=== PATIENT | male | born 1965 | race Caucasian/White ===

== ENCOUNTER → 2018-08-03 | Outpatient (CLI) | payer BC, OTHER ==
[~2018-08-03] MED LIST: ALLOPURINOL 10100 M1; ASPIRIN325 PO; ATRIPLA TABLET1 EACH; BYSTOLIC 5 MG5 M1 PO; CIALIS5 MG; DIOVAN 80 MG TA80 M1 PO; FISH OIL 1,001000 M2; FLAXSEED1000 MG; IBUPROFEN 200200 M1; LIVALO2 MG; MILK THISTLE500 MG; NIACIN1000 MG; SUDAFED 12 HOU120 MG; TUMS PO
== END ==
LOC: RAD 12:44
DX: J98.11 Atelectasis (principal); J44.9 Chronic obstructive pulmonary disease, unspecified

== ENCOUNTER 2020-03-14 15:44 | Inpatient (IN) | payer BC, OTHER ==
[~2020-03-14] VITALS: Ht 177.8 cm; Wt 74.8 kg
[2020-03-14] MEDS ORDERED: BIKTARVY 50-201 EACH PO (16:01)
[2020-03-14] MEDS ORDERED: UBIQUINOL100 MG PO (16:04)
[2020-03-14] MEDS ORDERED: TRELEGY ELLIPT1 EACH INH (16:04)
[2020-03-14] MEDS ORDERED: PROAIR HFA8.5 GM INH (16:05)
[2020-03-14 16:21] LABS: BASOPHILS 0.4 % (0.0-2.0); EOSINOPHILS 2.5 % (0.0-3.0); HEMATOCRIT 40.1 % (42.0-52.0); HEMOGLOBIN 14.2 gm/dL (14.0-18.0); LYMPHOCYTES 23.5 % (24.0-44.0); MCH 32.9 pg (26.0-34.0); MCHC 35.4 g/dL (28.0-37.0); MONOCYTES 11.4 % (1.0-8.0); PLATELET COUNT 232 thou/uL (150-400); POLYS 62.2 % (36.0-66.0); RBC 4.31 mil/uL (4.50-6.00); RDW 12.6 % (10.5-14.5); WBC 9.7 thou/uL (4.0-11.0)
[2020-03-14 16:27] LABS: ANION GAP 7 mmol/L (7-16); BUN 18 mg/dL (7-18); CHLORIDE 106 mmol/L (98-107); CO2 26 mmol/L (21-32); CREATININE 1.4 mg/dL (0.7-1.3); GLUCOSE 84 mg/dL (74-106); POTASSIUM 3.6 mmol/L (3.5-5.1); SODIUM 139 mmol/L (136-145)
[2020-03-14 16:36] LABS: TROPONIN-I 0.81 ng/mL (<0.06)
--- NOTE | 2020-03-14 16:38 | EKG ---
[facility] [place] [address] ELECTROCARDIOGRAM REPORT Name: MARCY DALEY Room #: PRE [facility]..#: [id number] Admission: Attend Phys: Discharge: Date of : 63 Report #: [id number] THIS REPORT FOR: cc: Isaiah Engel MD, Christopher B. MD Lundgren,Wesley Fragoso MD 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 03/14/20 1637 1553 1553 Wesley Zarco MD, [facility] /EPI
[2020-03-14 18:12] VITALS: BP 148/86; BP 155/102
[2020-03-14 18:30] VITALS: BP 139/94
[2020-03-14 18:36] LABS: CHOLESTEROL 120 mg/dL (<200); HDL CHOLESTEROL 50 mg/dL (>40); LDL CHOLESTEROL 50 mg/dL (<100); TC:HDL 2.4 Ratio (Not establshd); TRIGLYCERIDE 102 mg/dL (<150); VLDL 20 mg/dL (<40)
[2020-03-14 18:40] LABS: PROTIME 10.6 Seconds (9.3-11.4)
[2020-03-14 19:50] VITALS: BP 141/97
--- NOTE | 2020-03-14 20:55 | NUR ---
PT. ARRIVED AT FLOOR AROUND 1809; PT. AOX4; ABLE TO AMBULATE FROM WHEECHAIR TO BED; NO C/O PAIN; HEPARIN GIVEN PER EMAR; UPSET DUE TO TV NOT WORKING; REQUESTED TO CHANGE ROOMS; CHANGED TO ROOM 200; SR ON THE MONITOR; EDUCATED ABOUT FALL PREVENTIONS; ST. UNDERSTANDING; PASSED REPORT TO NIGHT NURSE SOREN OHARA;
[2020-03-15] VITALS (9 sets, daily range): BP systolic 121–173; BP diastolic 79–112
--- NOTE | 2020-03-15 03:17 | NUR ---
PT ADMITTED TO 219 IRRITABLE ABOUT HAVING NO TV REMOTE, PT TRANSFERRED TO ROOM 200, HEPARIN GTT STARTED, PAIN MED GIVEN FOR INTERMITTENT CP, SR -SB ON HEART MONITOR. VSS, NPO SINCE MNOC, CRITICAL TROPONIN CALLED TO PHYSICIAN, PT RESTING QUIETLY IN ROOM WILL CON'T TO MONITOR PER PROTOCOL.
[2020-03-15 04:12] LABS: HEMATOCRIT 40.8 % (42.0-52.0); MCH 32.4 pg (26.0-34.0); MCHC 34.2 g/dL (28.0-37.0); MCV 94.7 fL (80.0-100.0); RBC 4.31 mil/uL (4.50-6.00); RDW 12.6 % (10.5-14.5); WBC 7.8 thou/uL (4.0-11.0)
[2020-03-15 04:21] LABS: ALBUMIN 3.3 g/dL (3.4-5.0); CALCIUM 8.8 mg/dL (8.5-10.1); CREATININE 1.3 mg/dL (0.7-1.3); POTASSIUM 3.7 mmol/L (3.5-5.1); TOTAL BILIRUBIN 0.6 mg/dL (0.2-1.0); TOTAL PROTEIN 6.2 g/dL (6.4-8.2)
--- NOTE | 2020-03-15 07:04 | NUR ---
PT RESTING IN ROOM THRU THE NOC, NPO, VSS, PRN PAIN MED GIVEN FOR INTERMITENT CP, ASSESSMENTS CHARTED, WILL CON'T TO MONITOR PER PPOC.
--- NOTE | 2020-03-15 07:32 | EKG ---
[facility] Ankita [place] [address] ELECTROCARDIOGRAM REPORT Name: MARCY DALEY Room #: 200-I ADM IN M.R.#: [id number] Admission: 03/14/20 Attend Phys: Jerry Terrell MD Discharge: Date of : 63 Report #: [id number] THIS REPORT FOR: cc: Jason Engel MD, Daniel J. MD Lundgren, Craig H. 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 : 1965 Requested By: Durga Freeman Order Number: [id number] MD: Wesley Zarco Measurements Intervals [place] Rate: 66 P: 16 ND: 147 QRS: 13 QRSD: 91 T: 4 QT: 397 QTc: 416 Interpretive Statements Sinus rhythm Nonspecific ST segment abnormality Compared to ECG 03/14/2020 15:53:06 No significant change was found Electronically Signed On 03-15-2020 7:31:18 CDT by Wesley Zarco [email or web address] <ELECTRONICALLY SIGNED> By: Wesley Zarco MD, FACC 03/15/20 0731 1650 1650 Wesley Zarco MD, [facility] /EPI
--- NOTE | 2020-03-15 12:38 | 2DMMODE ---
[facility] [place] [address] 2 D/M-MODE ECHOCARDIOGRAM Name: MARCY DALEY Room #: 200-I ADM IN M.R.#: [id number] Admission: 03/14/20 Attend Phys: Jerry Terrell MD Discharge: Date of : 63 Report #: [id number] THIS REPORT FOR: cc: Jason Engel MD, Daniel J. MD Lundgren, Craig H. MD [facility] ~ APPROVED REPORT Study performed: 03/15/2020 11:37:49 EXAM: Comprehensive 2D, Doppler, and color-flow Echocardiogram Patient Location: Bedside Room #: 200 Status: routine BSA: 1.92 HR: 56 bpm BP: 172/112 mmHg Rhythm: NSR Other Information Study Quality: Fair Technically limited study due to lung interference/flat on back. Indications NSTEMI status post PCI. Hx: PR with stent placement. 2D Dimensions RVDd: 27.92 mm IVSd: 13.81 (7-11mm) LVOT Diam: 21.13 (18-24mm) LVDd: 52.13 mm PWd: 13.09 (7-11mm) LVDs: 38.91 (25-40mm) Aortic Root: 33.74 mm Volumes Left Atrial Volume (Systole) Single Plane 4CH: 49.39 mL Single Plane 2CH: 45.18 mL LA ESV Index: 26.00 mL/m2 Aortic Valve AoV Peak Johnson.: 1.20 m/s AO Peak Gr.: 5.74 mmHg LVOT Max P.60 mmHg [facility] [address] [place] [address] 2 D/M-MODE ECHOCARDIOGRAM Name: EDIMARCY Samantha Room #: 200-I ADM IN ..#: [id number] Admission: 03/14/20 Attend Phys: Jerry Terrell MD Discharge: Date of : 63 Report #: [id number] LVOT Max V: 0.81 m/s SHEY Vmax: 2.36 cm2 Mitral Valve E/A Ratio: 0.8 MV Decel. Time: 216.84 ms MV E Max Johnson.: 0.75 m/s MV A Johnson.: 0.92 m/s MV PHT: 62.88 ms IVRT: 121.11 ms Pulmonary Valve PV Peak Johnson.: 0.84 m/s PV Peak Gr.: 2.79 mmHg Tricuspid Valve RAP Estimate: 5.00 mmHg Left Ventricle The left ventricle is normal size. There is normal LV segmental wall motion. Mild concentric left ventricular hypertrophy. Left ventricular systolic function is normal. LVEF is 50-55%. Mild diastolic dysfunction is present (impaired relaxation pattern). Right Ventricle The right ventricle is normal size. The right ventricular systolic function is normal. Atria The left atrium size is normal. The right atrium size is normal. Aortic Valve The aortic valve is normal in structure. Trace aortic regurgitation. There is no aortic valvular stenosis. Mitral Valve The mitral valve is normal in structure. Trace to mild mitral regurgitation. No evidence of mitral valve stenosis. Tricuspid Valve The tricuspid valve is normal in structure. There is no tricuspid valve regurgitation noted. Unable to assess PA pressure. Pulmonic Valve Pulmonic valve is not well visualized. [facility] [address] [address] 2 D/M-MODE ECHOCARDIOGRAM Name: MARCY DALEY Room #: 200-I ADM IN [facility].#: [id number] Admission: 03/14/20 Attend Phys: Jerry Terrell MD Discharge: Date of : 63 Report #: [id number] Great Vessels The aortic root is normal in size. Ascending aorta is not well visualized. IVC is normal in size and collapses >50% with inspiration. Pericardium There is no pericardial effusion. <Conclusion> Left ventricular systolic function is normal. There is normal LV segmental wall motion. LVEF is 50-55%. Mild diastolic dysfunction The aortic valve is normal in structure. Trace aortic regurgitation, no stenosis. The mitral valve is normal in structure. Trace to mild mitral regurgitation. Unable to assess pulmonary artery pressure. There is no pericardial effusion. <ELECTRONICALLY SIGNED> By: Wesley Zarco MD, [facility] 03/15/20 1237 1237 1237 Wesley Zarco MD, FACC /INF
--- NOTE | 2020-03-15 15:53 | EKG ---
[facility] [place] [address] ELECTROCARDIOGRAM REPORT Name: MARCY DALEY Room #: 200-I ADM IN M.R.#: [id number] Admission: 03/14/20 Attend Phys: Jerry Terrell MD Discharge: Date of : 63 Report #: [id number] THIS REPORT FOR: cc: Jason Engel MD, Daniel J. MD Couchonnal, Luis F. 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
--- NOTE | 2020-03-15 19:53 | NUR ---
ASSUMED CARE PT SHIFT CHANGE. ASSESSMENTS CHARTED. MORNING ASSESSMENT NOT CHARTED DUE TO PT BEING TAKEN TO CAR WASH ATTENDANT SHORTLY AFTER SHIFT CHANGE. PT ALERT AND ORIENTED. VSS- BP ELEVEATED, CARDS NOTIFIED. ORDERS RECEIVED. PT C/O INTERMITTEN CP THIS SHIFT. CARDS NOTIFIED, ORDERS RECEIVED. PT C/O HEART BURN AND WAS GIVEN PEPCID AND GI COCKTAIL WITH RELIEF OBTAINED. PT UP AD DINORA, RT GROIN SITE CDI, NO HEMATOMA. PT CURRENTLY RESTING IN BED DENYING OF NEEDS/ PAIN. WILL CONTINUE TO MONITOR. REPORT PASSED ONTO NOC RN.
[2020-03-16 05:38] LABS: HEMATOCRIT 43.6 % (42.0-52.0); HEMOGLOBIN 15.1 gm/dL (14.0-18.0); MCH 32.3 pg (26.0-34.0); MCHC 34.6 g/dL (28.0-37.0); MCV 93.3 fL (80.0-100.0); RBC 4.68 mil/uL (4.50-6.00); RDW 12.6 % (10.5-14.5); WBC 9.5 thou/uL (4.0-11.0)
[2020-03-16 06:03] LABS: ALBUMIN 3.5 g/dL (3.4-5.0); CALCIUM 9.4 mg/dL (8.5-10.1); CREATININE 1.1 mg/dL (0.7-1.3); POTASSIUM 3.7 mmol/L (3.5-5.1); TOTAL BILIRUBIN 0.9 mg/dL (0.2-1.0); TOTAL PROTEIN 6.9 g/dL (6.4-8.2)
[2020-03-16 07:15] VITALS: BP 164/109
--- NOTE | 2020-03-16 07:42 | EKG ---
[facility] [place] [address] ELECTROCARDIOGRAM REPORT Name: MARCY DALEY Room #: 200-I ADM IN M.R.#: [id number] Admission: 03/14/20 Attend Phys: Jerry Terrell MD Discharge: Date of : 63 Report #: [id number] THIS REPORT FOR: cc: Jason Engel MD, Daniel J. MD Lundgren, Craig H. 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: Shaheed CANTU : 1965 Requested By: Gigi Lancaster Order Number: [id number] MD: Wesley Zarco Measurements Intervals [place] Rate: 75 P: 31 MI: 148 QRS: 55 QRSD: 90 T: 61 QT: 401 QTc: 448 Interpretive Statements Sinus rhythm Nonspecific ST segment abnormality Compared to ECG 03/15/2020 14:59:48 No significant changes Electronically Signed On 03-16-2020 7:40:08 CDT by Wesley Zarco [email or web address] <ELECTRONICALLY SIGNED> By: Wesley Zarco MD, FACC 03/16/20 0740 0711 0711 Wesley Zarco MD, [facility] /EPI
[2020-03-16] MEDS ORDERED: NORVASC5 MG PO (07:56)
[2020-03-16] MEDS ORDERED: ZETIA10 MG PO (07:56)
[2020-03-16] MEDS ORDERED: EFFIENT10 MG PO (07:56)
[2020-03-16 07:58] LABS: TROPONIN-I 1.24 ng/mL (<0.06)
--- NOTE | 2020-03-16 10:46 | NUR ---
noted per chart, possible dc today. will cont following as needed. no anticipated needs.
[2020-03-16 12:10] VITALS: BP 164/109
--- NOTE | 2020-03-16 20:47 | NUR ---
ASSUMED CARE OF PATIENT AT 0700. ASSESSMENT DOCUMENTED. PATIENT DENIES ANY CHEST PAIN. RIGHT GROIN SITE FROM CATH IS FREE OF EDEMA, HEMATOMA OR DRAINAGE. PATIENT IS UP AD DINORA WITHOUT ANY DIFFICULTY. DISCHARGE ORDERS PLACED. PATIENT STATES THAT HE HAS ALL OF HIS BELONGINGS. IV AND TELE REMOVED. DISCHARGE PAPERWORK REVIEWED AND SIGNED. PATIENT STATES THAT HE FEELS BETTER THAN HE DID WHEN HE ARRIVED. PATIENT TAKEN VIA WHEELCHAIR TO THE MAIN ENTRANCE AND DRIVEN HOME BY HIS BROTHER.
--- NOTE | 2020-03-22 14:10 | CATHLAB ---
[facility] [place] [address] INVASIVE PROCEDURE REPORT Name: EDIMARCY Samantha Room #: 200-I DIS IN M.R.#: [id number] Admission: 03/14/20 Attend Phys: Jerry Terrell MD Discharge: 03/16/20 Date of : 63 Report #: [id number] THIS REPORT FOR: cc: Jasno Engel MD, Daniel J. MD Mancuso, Gerald M. MD [facility] ~ APPROVED REPORT Study performed: 03/15/2020 08:03:54 Patient Details Patient Status: In-Patient Room #: 200 The patient is a 55 year-old male Event Personnel Gigi Lancaster Carpet Layer Helper, Yohana Anderson RN, Isis Szymanski RTR Scrub, Sarah Bray Monitor, Samara Han RTR, BODY CARE MANAGER Online Services Manager Procedures Performed Art Access - R femoral artery* Left Heart Cath w/or w/o Coronaries [id number] [facility] [address] Initial Mod Sed Same Phys/QHP Gr5y 118020 38359 Mod Sed Same Phys/QHP Ea 207624 CELI Place w/wo Plasty Single CIRC 086505 CELI Place w/wo Plasty Single OM 584049 Hemostasis w/ Mynx Abdominal Aortography 296749 Indication Chest pain Procedure Narrative The Right Groin^ was infiltrated with 1% Lidocaine subcutaneous anesthesia. A sheath was inserted into the RFA 6F^. Coronary angiography was performed using coronary diagnostic catheters. The patient tolerated the procedure well and there were no complications associated with the procedure. Intraoperative Conscious Sedation Sedation start time: 832 Case end Time: 1000 Fentanyl 100 mcg Versed 1 mg Fluoro Time: 17.15 minutes Dose: DAP 228038.80 cGycm2 2229 mGy Contrast Type and Amount: Visipaque 260 ml [facility] [place] [address] INVASIVE PROCEDURE REPORT Name: MARCY DALEY Room #: 200-I [facility]#: [id number] Admission: 03/14/20 Attend Phys: Jerry Terrell MD Discharge: 03/16/20 Date of : 63 Report #: [id number] Hemodynamics The aortic pressure is 168/84 mmHg with a mean of 114 mmHg. The left ventricular pressure is 160/7 mmHg with a mean of mmHg. The left ventricular end diastolic pressure is 12 mmHg. PCI Technique Lesion Percutaneous coronary intervention was performed on the distal circumflex artery segment. A LAUNCHER 6FR EBU 4 #[id number] Guide Catheter was used to engage the MARGINAL ostium. A Luge Wire .014 x 182CM #[id number] Interventional Guidewire was used to cross the lesion. BALLOON DILATION A Balloon catheter Sprinter OTW 2.5 x 12 #[id number] was inserted and inflated up to 10.00atm for 21seconds. Additional Inflation: 10.00atm for 18seconds. Additional Inflation: 12.00atm for 11seconds. Additonal inflations as follows: 16 valeria F 23 sec., 4 valeria for 9 sec (x2), 18 valeria for 43 secs, 12 valeria for 10 secs, 20 valeria for 55 secx. STENT DEPLOYMENT A stent RESOLUTE DIEUDONNE RX 2.75 X 18 #[id number] was inserted and inflated up to 18.00atm for 28seconds. Additional Inflation: 20.00atm for 22seconds. POST STENT DEPLOYMENT BALLOON DILATION A Balloon catheter TREK NC OTW 2.75 X 8 #[id number] was inserted and inflated up to 20.00atm for 27seconds. Additional Inflation: 22atm for 23seconds. Additional Inflation: 22atm for 23seconds. The Trek was used at the bifurcation of Circ-OM PCI Technique Lesion 2 A LAUNCHER 6FR EBU 4 #[id number] Guide Catheter was used to engage the CIRC ostium. A Luge Wire .014 x 182CM #[id number] Interventional Guidewire was used to cross the lesion. Balloon Dilation A Balloon catheter Sprinter OTW 2.5 x 12 #[id number] was inserted and inflated up to 18atm for 38seconds. Post Stent Deployment Balloon Dilation A Balloon catheter TREK NC OTW 2.75 X 12 #[id number] was inserted and inflated up to 20atm for 40seconds. Additional Inflation: 20atm for 30seconds. [facility] [address] [place] [address] INVASIVE PROCEDURE REPORT Name: MARCY DALEY Room #: 200-I DIS IN ..#: [id number] Admission: 03/14/20 Attend Phys: Jerry Terrell MD Discharge: 03/16/20 Date of : 63 Report #: [id number] Conclusion 1. Successful PTCA stent of an ostial circumflex OM which extends into a prior stent totally occluded vessel with collateral filling. 2.75 x 8 resolute [place] postdilated 3.0 mm extend slightly into the main circumflex artery without encroachment and flow. FRANK grade III flow #2 sessile PTCA of in-stent restenosis in the mid distal circumflex which is large and codominant 90% to 10% with PTCA alone high-pressure balloon to 3.0 mm. #3 left main short free of disease giving rise to LAD circumflex #4 LAD is moderately diseasedm it extends to the apex and around no high-grade occlusive disease #5 essentially nondominant right coronary artery moderately diseased #6 normal left jugular size systolic function lower limits normal EF 50 to 55% subtle lateral wall hypokinesis #7 abdominal aortogram revealing mildly ectatic aorta mild calcification no aneurysm. Left renal artery appears to have a mild to moderate stenosis. Recommendations and plan: Continue aggressive risk factor modification. Dual antiplatelet therapy reinitiated. To CCU in stable but guarded condition. Follow post stent protocol. <ELECTRONICALLY SIGNED> By: Gigi Lancaster MD, [facility] 03/17/20901 1 1 Gigi Lancaster MD, FACC /INF
== END 2020-03-16 12:56 | disposition home or self-care (01) | DRG 246 ==
LOC: ER 15:44 → 2N 17:28 → EROBS 17:28 → 2N 18:22
PROVIDERS: Emergency Medicine; Internal Medicine Cardiovascular Disease; ADMIT Hospitalist; ATTEND Hospitalist
PROC: B211YZZ Fluoroscopy of Multiple Coronary Arteries using Other Contrast (ICD-10-PCS; principal; 2020-03-15)
PROC: 4A023N8 Measurement of Cardiac Sampling and Pressure, Bilateral, Percutaneous Approach (ICD-10-PCS; principal; 2020-03-15)
PROC: B410YZZ Fluoroscopy of Abdominal Aorta using Other Contrast (ICD-10-PCS; principal; 2020-03-15)
PROC: 027034Z Dilation of Coronary Artery, One Artery with Drug-eluting Intraluminal Device, Percutaneous Approach (ICD-10-PCS; principal; 2020-03-15)
DX: T82.855A Stenosis of coronary artery stent, initial encounter (principal); I21.4 Non-ST elevation (NSTEMI) myocardial infarction; N17.9 Acute kidney failure, unspecified; K21.9 Gastro-esophageal reflux disease without esophagitis; I25.10 Atherosclerotic heart disease of native coronary artery without angina pectoris; I10 Essential (primary) hypertension; E78.5 Hyperlipidemia, unspecified; G47.33 Obstructive sleep apnea (adult) (pediatric); J44.9 Chronic obstructive pulmonary disease, unspecified; F12.90 Cannabis use, unspecified, uncomplicated; Z95.5 Presence of coronary angioplasty implant and graft; Z91.040 Latex allergy status; Z87.891 Personal history of nicotine dependence; Z79.82 Long term (current) use of aspirin; Z79.899 Other long term (current) drug therapy; Z82.49 Family history of ischemic heart disease and other diseases of the circulatory system; Z71.51 Drug abuse counseling and surveillance of drug abuser
CPT/HCPCS: 10081

== ENCOUNTER → 2020-05-24 | Outpatient (CLI) | payer BC, OTHER ==
[~2020-05-24] MED LIST changes: +BIKTARVY 50-201 EACH PO; +EFFIENT10 MG PO; +NORVASC5 MG PO; +PROAIR HFA8.5 GM INH; +TRELEGY ELLIPT1 EACH INH; +UBIQUINOL100 MG PO; +ZETIA10 MG PO
== END ==
LOC: SJCVCIMAG 09:14
PROVIDERS: ATTEND Internal Medicine Cardiovascular Disease
DX: I08.8 Other rheumatic multiple valve diseases (principal); I25.10 Atherosclerotic heart disease of native coronary artery without angina pectoris; Z98.61 Coronary angioplasty status

== ENCOUNTER → 2021-02-07 | Outpatient (CLI) | payer BC, OTHER | LOC: SJCVCIMAG 07:21 | PROVIDERS: ATTEND Internal Medicine Cardiovascular Disease | DX: I25.10 Atherosclerotic heart disease of native coronary artery without angina pectoris (principal); I49.3 Ventricular premature depolarization; I10 Essential (primary) hypertension; E78.00 Pure hypercholesterolemia, unspecified; R07.9 Chest pain, unspecified; Z95.5 Presence of coronary angioplasty implant and graft ==

== ENCOUNTER → 2021-09-10 | Outpatient (CLI) | payer BC, OTHER ==
[~2021-09-10] VITALS: Ht 177.8 cm; Wt 79.8 kg
[~2021-09-10] MED LIST changes: +ADULT LOW DOSE81 MG PO; +ADVIL200 M1 PO; +BENICAR HCT 401 EACH PO; -BYSTOLIC 5 MG5 M1 PO; +BYSTOLIC10 MG PO; +DYMISTA NARES; -LIVALO2 MG; +LIVALO4 MG PO; +POTASSIUM CITR10 ME2 PO; +PROTONIX 20 MG20 MG PO; +SUDAFED 12-HOU120 MG PO
[2021-09-10 14:18] VITALS: BP 114/79
--- NOTE | 2021-09-10 15:05 | NUR ---
Pain Clinic Assessment: 1. History of Osteoarthritis: History of Rheumatoid Arthritis: 2. Height: 5 ft. 10 in. 177.8 cm. Weight: 176.0 lb. oz. 79.833 kg. Patient's BMI: 25.3 3. Vital Signs: BP: 114/79 Pulse: 74 Resp: 16 Temp: 02 Sat: 97 ECG Mon: 4. Pain Intensity: 1-2 REST 8-9 ACTIVITY 5. Fall Risk: Dizziness: N Needs help standing or walking: N Fallen in the last 3 months: Y Fall risk comments: 6. Patient on Blood Thinner: EFFIENT 7. History of Hypertension: Y 8. Opioid Therapy greater than 6 weeks: N Opiate Contract Signed: 9. Risk Assessment Tool Provided: 0-3 LOW RISK 10. Functional Assessment Tool: 37/ . Recreational Drug Use: Past greater than 3 mos Drug Type: WEED Tobacco Use: Never Smoker Tobacco Type: Amount or Packs/day: How Many Years: Alcohol Use: No Frequency: Quant:
== END ==
LOC: PAIN 07:33
PROVIDERS: ATTEND Anesthesiology Pain Medicine
DX: M54.16 Radiculopathy, lumbar region (principal); I10 Essential (primary) hypertension; Z88.8 Allergy status to other drugs, medicaments and biological substances; Z79.82 Long term (current) use of aspirin; Z79.899 Other long term (current) drug therapy

== ENCOUNTER → 2021-09-20 | Outpatient (CLI) | payer BC, OTHER | LOC: MRI 09:34 | PROVIDERS: ATTEND Anesthesiology Pain Medicine | DX: M47.26 Other spondylosis with radiculopathy, lumbar region (principal); M48.061 Spinal stenosis, lumbar region without neurogenic claudication ==